=== PATIENT | female | born 1975 | race African-American/Black ===

== ENCOUNTER 2018-01-29 21:56 | Inpatient (IN) | payer OTHER ==
[~2018-01-29] VITALS: Ht 160 cm; Wt 63.7 kg
[2018-01-29 22:01] VITALS: Ht 160 cm; Wt 63.7 kg
[2018-01-30 01:00] LABS: BASOPHIL % 0.5 % (0-2); PLATELET COUNT 150 x10^3mcL (130-400)
[2018-01-30 01:04] LABS: CARBON DIOXIDE 27.3 mmol/L (21-32); CREATININE SERUM 1.9 mg/dL (0.6-1.0); POTASSIUM SERUM 4.2 mmol/L (3.5-5.1); RED CELL DISTRIBUTION WIDTH 18.5 % (11.5-14.5)
[2018-01-30 01:09] LABS: ALBUMIN 2.8 g/dL (3.4-5.0); BILIRUBIN TOTAL 0.69 mg/dL (0.20-1.00); TOTAL PROTEIN, SERUM 6.7 g/dL (6.4-8.2)
[2018-01-30] MEDS ORDERED: BUMETANIDE2 MG PO (02:37)
[2018-01-30] MEDS ORDERED: ALDACTONE100 MG PO (02:37)
[2018-01-30] MEDS ORDERED: ENTRESTO PO (02:38)
[2018-01-30 04:17] VITALS: BP 114/65
[2018-01-30 08:32] LABS: FREE T4 1.17 ng/dL (0.76-1.46); FREE THYROXINE INDEX 2.9 ug/dL (1.4-4.5); T4(THYROXINE) 8.4 ug/dL (4.7-13.3)
[2018-01-30 08:54] LABS: T3 TOTAL 0.98 ng/mL
[2018-01-30 09:00] LABS: MAGNESIUM 1.9 mg/dL (1.8-2.4); PHOSPHOROUS 3.5 mg/dL (2.5-4.9)
[2018-01-30 09:41] LABS: BASOPHIL % 0.6 % (0-2); PLATELET COUNT 144 x10^3mcL (130-400)
[2018-01-30 09:43] LABS: RED CELL DISTRIBUTION WIDTH 17.9 % (11.5-14.5)
[2018-01-30 09:46] VITALS: BP 104/72
[2018-01-30 10:02] LABS: CALCIUM 8.8 mg/dL (8.5-10.1); CARBON DIOXIDE 29.9 mmol/L (21-32); CREATININE SERUM 1.7 mg/dL (0.6-1.0); POTASSIUM SERUM 3.7 mmol/L (3.5-5.1)
[2018-01-30 13:57] VITALS: BP 98/68
[2018-01-30 16:55] VITALS: BP 136/73
[2018-01-30 20:51] VITALS: BP 99/64
[2018-01-31 06:00] VITALS: BP 90/54
[2018-01-31 09:30] VITALS: BP 90/54
[2018-01-31 13:08] VITALS: BP 103/75
== END 2018-01-31 17:40 | disposition left against medical advice (07) | DRG 291 ==
LOC: EDBD 21:56 → ED 21:56 → DU 01-30 02:24
PROVIDERS: Emergency Medicine; Family Medicine
DX: I50.23 Acute on chronic systolic (congestive) heart failure (principal); J96.00 Acute respiratory failure, unspecified whether with hypoxia or hypercapnia; N17.0 Acute kidney failure with tubular necrosis; E43 Unspecified severe protein-calorie malnutrition; J45.909 Unspecified asthma, uncomplicated; N18.3 Chronic kidney disease, stage 3 (moderate); R73.03 Prediabetes; Z68.24 Body mass index [BMI] 24.0-24.9, adult; Z95.810 Presence of automatic (implantable) cardiac defibrillator; Z91.14 Patient's other noncompliance with medication regimen
CPT/HCPCS: 83880; 84439; J0696; J3490; J7040; J7613; J7644